=== PATIENT | female | born 1970 | race Hispanic/Latino ===

== ENCOUNTER 2024-02-29 12:54 | Emergency (ER) | payer OTHER ==
[~2024-02-29] VITALS: Ht 152.4 cm; Wt 65.8 kg
[2024-02-29] MEDS: HYDROCODONE/ACETAMINOPHEN 10/325 MG TAB PO ONE (14:27)
[2024-02-29] MEDS ORDERED: NAPR-1196 PO (15:46)
[2024-02-29 15:47] VITALS: BP 121/64; PULSE 80; RESP 12; O2SAT 98
== END 2024-02-29 15:49 | disposition home or self-care (01) ==
LOC: EDH 12:54
DX: S90.31XA Contusion of right foot, initial encounter (principal); Z90.49 Acquired absence of other specified parts of digestive tract; Z98.890 Other specified postprocedural states; Z88.0 Allergy status to penicillin; W18.39XA Other fall on same level, initial encounter; Y93.89 Activity, other specified; Y92.89 Other specified places as the place of occurrence of the external cause; Y99.8 Other external cause status
CPT/HCPCS: 73630